=== PATIENT | female | born 1985 | race American Indian/Alaskan Native ===

== ENCOUNTER 2016-06-11 10:45 | Emergency (ER) | payer MEDICAID, OTHER ==
[2016-06-11 11:02] VITALS: BMI 26.6
[2016-06-11] MEDS ORDERED: Sodium Chloride 0.9% 1,000 ML IV ONE (11:02)
[2016-06-11 11:03] VITALS: RESP 20
[2016-06-11] MEDS ORDERED: Sodium Chloride 0.9% 1,000 ML ONE (11:14)
--- NOTE | 2016-06-11 11:18 | C.PDOC ---
History Of Present Illness 30 y/o female presents to the ED with complains of upper abdominal pain since this morning. History of in the past, no other medical problems. Pt denies nausea, vomiting, diarrhea, fever, or any other complaints. Time Seen by Provider: 06/11/16 10:55 Chief Complaint (Nursing): Abdominal Pain History Per: Patient History/Exam Limitations: no limitations Onset/Duration Of Symptoms: Hrs Current Symptoms Are (Timing): Still Present Severity: Mild Radiation Of Pain To:: None Quality Of Discomfort: "Pain" Associated Symptoms: denies: Fever, Nausea, Vomiting, Diarrhea, Chest Pain Exacerbating Factors: None Alleviating Factors: None Recent travel outside of the [place]: No Past Medical History Reviewed: Historical Data, Nursing Documentation, Vital Signs Vital Signs: Last Vital Signs Temp 97.6 F 06/11/16 10:56 Pulse 64 06/11/16 10:56 Resp 20 06/11/16 10:56 BP 112/80 06/11/16 10:56 Pulse Ox 100 06/11/16 13:41 Family History: States: Unknown Family Hx - Social History Hx Tobacco Use: No Hx Alcohol Use: No Hx Substance Use: No - Immunization History Hx Tetanus Toxoid Vaccination: No Hx Influenza Vaccination: No Hx Pneumococcal Vaccination: No Review Of Systems Except As Marked, All Systems Reviewed And Found Negative. Constitutional: Negative for: Fever Cardiovascular: Negative for: Chest Pain Gastrointestinal: Positive for: Abdominal Pain. Negative for: Nausea, Vomiting , Diarrhea Physical Exam - Physical Exam Appears: Non-toxic, No Acute Distress Skin: Warm, Dry, No Rash Head: Atraumatic, Normacephalic Neck: Normal ROM, Supple Chest: Symmetrical Cardiovascular: Rhythm Regular, No Murmur Respiratory: Normal Breath Sounds, No Rales, No Rhonchi, No Wheezing Gastrointestinal/Abdominal: Soft, Tenderness (epigastric), No Guarding, No Rebound Extremity: Bilateral: Atraumatic Neurological/Psych: Oriented x3 ED Course And Treatment - Laboratory Results Result Diagrams: 06/11/16 12:20 06/11/16 12:20 Lab Interpretation: Normal Urine POC: Negative ECG: Interpreted By Me ECG Rhythm: Sinus Rhythm ECG Interpretation: Normal Rate From EC O2 Sat by Pulse Oximetry: 100 (on room air) Pulse Ox Interpretation: Normal - Other Rad No standard instances Interpretation: FINDINGS: UTERUS: Measures 12.5 x 4.2 x 7.4 cm. Anteverted. ENDOMETRIUM: Measures 6 mm in diameter. IUD was not adequately visualized ; crna reports best possible images obtained during this examination. CERVIX: No cervical abnormality identified. RIGHT OVARY: Measures 3.5 x 1.9 x 3.3 cm. Blood flow is demonstrated. LEFT OVARY: Measures 9.3 x 8.4 x 8.3 cm. Blood flow is demonstrated. Adnexal cystic structure measuring approximately 8.5 x 7.2 x 9.0 cm, possibly septated cyst versus hydrosalpinx. FREE FLUID: No significant free fluid noted. OTHER FINDINGS: None. IMPRESSION: The IUD was not adequately visualized on this study and positioning cannot be assessed. Concern that the IUD may reside within the lower uterine segment/cervix which would require repositioning. Correlate clinically and recommend repeat study. Septated 9 cm left adnexal cyst vs hydrosalpinx. - CT Scan/US No standard instances Other Rad Studies (CT/US): Read By Radiologist CT/US Interpretation: FINDINGS: LIVER: Measures 17.6 cm in length. Echogenic liver may be seen in setting of hepatic parenchymal disease or fatty infiltration. No focal hepatic mass identified. Main portal vein appears patent with normal directional flow. No intrahepatic bile duct dilatation. GALLBLADDER : No gallstones. No gallbladder wall thickening or pericholecystic edema. Negative sonographic Samuels's sign as assessed by the crna. COMMON BILE DUCT: Measures approximately 3 mm. PANCREAS: Not well-visualized. RIGHT KIDNEY: Measures 11.6 x 5.8 x 5.8 cm. No obstructing calculus or hydronephrosis identified. AORTA: Limited visualization appears grossly unremarkable. IVC: Limited visualization appears grossly unremarkable. OTHER FINDINGS: None . IMPRESSION: Echogenic liver may be seen in setting of hepatic parenchymal disease or fatty infiltration. Progress Note: Plan: labs, pepcid, IV fluids, US abdomen. Case discused and patient evaluated by Dr Brown who agrees with discharge and follow up with OB/ INVESTOR RELATIONS ANALYST for further evaluation Reassessment Condition: Improved Disposition - Disposition Referrals: [facility] [Outside] [facility] at [facility] [Outside] Disposition: HOME/ ROUTINE Disposition Time: 13:45 Condition: STABLE Additional Instructions: Follow up with your INVESTOR RELATIONS ANALYST for further evaluation Prescriptions: Naproxen [Naprosyn] 1 tab PO BID PRN #25 tab PRN Reason: Pain Instructions: Ovarian Cyst (ED) - POA Present On Arrival: None - Clinical Impression Clinical Impression: Abdominal pain, Ovarian cyst - PA / OPHTHALMIC SURGICAL ASSISTANT / Resident Statement MD/DO has reviewed & agrees with the documentation as recorded. - Scribe Statement The provider has reviewed the documentation as recorded by the Scribe Joshua Morin All medical record entries made by the Scribe were at my direction and personally dictated by me. I have reviewed the chart and agree that the record accurately reflects my personal performance of the history, physical exam, medical decision making, and the department course for this patient. I have also personally directed, reviewed, and agree with the discharge instructions and disposition.
--- NOTE | 2016-06-11 11:53 | US ---
HISTORY: Pain RUQ COMPARISON: None available. TECHNIQUE: Sonographic evaluation of the right upper quadrant of the abdomen. FINDINGS: LIVER: Measures 17.6 cm in length. Echogenic liver may be seen in setting of hepatic parenchymal disease or fatty infiltration. No focal hepatic mass identified. Main portal vein appears patent with normal directional flow. No intrahepatic bile duct dilatation. GALLBLADDER: No gallstones. No gallbladder wall thickening or pericholecystic edema. Negative sonographic Samuels's sign as assessed by the market news reporter. COMMON BILE DUCT: Measures approximately 3 mm. PANCREAS: Not well-visualized. RIGHT KIDNEY: Measures 11.6 x 5.8 x 5.8 cm. No obstructing calculus or hydronephrosis identified. AORTA: Limited visualization appears grossly unremarkable. IVC: Limited visualization appears grossly unremarkable. OTHER FINDINGS: None . IMPRESSION: Echogenic liver may be seen in setting of hepatic parenchymal disease or fatty infiltration.
--- NOTE | 2016-06-11 12:23 | US ---
HISTORY: vaginal bleeding COMPARISON: None available. TECHNIQUE: Real-time transabdominal pelvic ultrasound was performed. In addition a transvaginal pelvic ultrasound was necessary to better depict pelvic anatomy FINDINGS: UTERUS: Measures 12.5 x 4.2 x 7.4 cm. Anteverted. ENDOMETRIUM: Measures 6 mm in diameter. IUD was not adequately visualized ; wood craftsman reports best possible images obtained during this examination. CERVIX: No cervical abnormality identified. RIGHT OVARY: Measures 3.5 x 1.9 x 3.3 cm. Blood flow is demonstrated. LEFT OVARY: Measures 9.3 x 8.4 x 8.3 cm. Blood flow is demonstrated. Adnexal cystic structure measuring approximately 8.5 x 7.2 x 9.0 cm, possibly septated cyst versus hydrosalpinx. FREE FLUID: No significant free fluid noted. OTHER FINDINGS: None. IMPRESSION: The IUD was not adequately visualized on this study and positioning cannot be assessed. Concern that the IUD may reside within the lower uterine segment/cervix which would require repositioning. Correlate clinically and recommend repeat study. Septated 9 cm left adnexal cyst vs hydrosalpinx.
[2016-06-11 12:31] LABS: BASO % 0.2 % (0.0-2.0); EOS % 0.5 % (0.0-4.0); HEMATOCRIT 37.1 % (34.0-47.0); LYMPH # 0.8 K/uL (1.0-4.3); LYMPH % 19.3 % (20.0-40.0); MEAN CELL VOLUME 91.1 fL (81.0-99.0); MEAN CORPUSCULAR HEMOGLOBIN 29.9 pg (27.0-31.0); MEAN CORPUSCULAR HGB CONC 32.8 g/dL (33.0-37.0); MEAN PLATELET VOLUME 8.3 fL (7.2-11.7); MONO # 0.4 K/uL (0.0-0.8); MONO % 10.3 % (0.0-10.0); RED CELL DISTRIBUTION WIDTH 13.5 % (11.5-14.5)
[2016-06-11 12:34] LABS: CHLORIDE 100 mmol/L (98-107); POTASSIUM 3.9 mmol/L (3.6-5.2); SODIUM 138 mmol/L (132-148)
[2016-06-11 12:36] LABS: GFR AFRICAN-AMERICAN > 60
[2016-06-11 12:37] LABS: ALB/GLOB RATIO 1.5 (1.0-2.1); ALKALINE PHOSPHATASE 46 U/L (38-126); ALT/SGPT 27 U/L (9-52); AST/SGOT 31 U/L (14-36); BILIRUBIN,TOTAL 0.2 mg/dL (0.2-1.3); BLOOD UREA NITROGEN 9 mg/dL (7-17); CALCIUM 8.5 mg/dl (8.6-10.4); CARBON DIOXIDE 26 mmol/L (22-30); GLUCOSE,RANDOM 100 mg/dL (65-105); TOTAL PROTEIN 6.7 g/dL (6.3-8.3)
[2016-06-11 14:05] VITALS: BP 112/74; PULSE 67; TEMP 98.2; O2SAT 99
--- NOTE | 2016-06-11 14:08 | CP.PCM.CON ---
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 Patient states that she first experienced the pain around 9:30 am whereupon she took some advil without much relief. She states that the pain was initially 10/10 waxing and waning in nature. Patient reports going to the work and not experiencing much relief, such that she left for further assessment. Upon arrival in the ED, patient was evaluated and administered Pepcid IV which brought the pain down to a 7/10. She denies nausea , vomiting vaginal bleeding, urinary frequency or urgency, diarrhea, constipation or palpitations at this time. PMHx- denies PSHx- c/s x3. Reason: failure to progress, and delivery 2 and 3 c/s delivery close in proxminity ( timewise) OBGYN Hx- Menarche: 12; Periods are regular, occurring every month Social: denies tobacco, alcohol or illicit drug use Patient has IUD in place [facility]- [facility] - Dr. Ezequiel Burnett In the ED, patient administered IV fluids, IV Pepcid. Transvaginal and abdominal Ultrasound were performed. Routine CBC, CMP labs drawn. Review of Systems - Constitutional Constitutional: absent: Chills, Daytime Sleepiness, Headache - EENT Eyes: absent: Blurred Vision Ears: absent: Decreased Hearing, Ear Discharge, Dizziness Nose/Mouth/Throat: absent: Nasal Congestion, Nasal Discharge - Cardiovascular Cardiovascular: Chest Pain. absent: Dyspnea - Respiratory Respiratory: absent: Cough, Dyspnea - Gastrointestinal Gastrointestinal: Abdominal Pain, Heartburn, Nausea. absent: Hematemesis, Loose Stools, Odynophagia, Vomiting - Genitourinary Genitourinary: absent: Urinary Frequency, Urinary Hesitance, Urinary Urgency - Reproductive: Female Reproductive:Female: Currently Menstual, Normal Menses. absent: Amenorrhea, Post Menopausal, Pelvic Pain - Menstruation Menstruation: Normal Menses - Musculoskeletal Musculoskeletal: absent: Back Pain, Neck Pain, Numbness - Integumentary Integumentary: absent: Change in Hair, Dry Skin - Neurological Neurological: absent: Abnormal Movements, Focal Weakness, Vertigo, Weakness - Psychiatric Psychiatric: absent: Abnormal Sleep Pattern, Anxiety - Endocrine Endocrine: absent: Change in Body Appearance, Change in Libido - Hematologic/Lymphatic Hematologic: absent: Easy Bleeding, Easy Bruising Past Patient History - Past Social History Smoking Status: Never Smoked Alcohol: None Drugs: Denies Home Situation {Lives}: With Family - MUSCULOSKELETAL/RHEUMATOLOGICAL Hx Falls: No - PSYCHIATRIC Hx Substance Use: No - SURGICAL HISTORY Hx Surgeries: Yes Hx Section: Yes Meds Home Medications: Home Medication List Medication Instructions Recorded Confirmed Type Naproxen [Naprosyn] 1 tab PO BID PRN #25 tab 06/11/16 Rx Allergies/Adverse Reactions: Allergies Allergy/AdvReac Type Severity Reaction Status Date / Time No Known Allergies Allergy Verified 03/30/15 13:15 Physical Exam - Constitutional Appears: Non-toxic, No Acute Distress - Head Exam Head Exam: ATRAUMATIC, NORMAL INSPECTION, NORMOCEPHALIC - Eye Exam Eye Exam: EOMI, Normal appearance, PERRL Pupil Exam: NORMAL ACCOMODATION - ENT Exam ENT Exam: Mucous Membranes Moist, Normal Exam - Neck Exam Neck exam: Positive for: Full Rom, Normal Inspection - Respiratory Exam Respiratory Exam: NORMAL BREATHING PATTERN - Cardiovascular Exam Cardiovascular Exam: +S1, +S2 - GI/Abdominal Exam GI & Abdominal Exam: Distended, Normal Bowel Sounds, Soft. absent: Firm, Guarding, Mass, Rebound, Rigid - Extremities Exam Extremities exam: Positive for: full ROM. Negative for: pedal edema - Back Exam Back exam: FULL ROM - Neurological Exam Neurological exam: Alert, CN II-XII Intact, Oriented x3 - Psychiatric Exam Psychiatric exam: Normal Affect, Normal Mood - Skin Skin Exam: Dry, Intact, Normal Color, Warm Results - Vital Signs Recent Vital Signs: Last Vital Signs Temp 97.6 F 06/11/16 10:56 Pulse 64 06/11/16 10:56 Resp 20 06/11/16 10:56 BP 112/80 06/11/16 10:56 Pulse Ox 100 06/11/16 13:43 - Labs Result Diagrams: 06/11/16 12:20 06/11/16 12:20 Labs: Laboratory Results - last 24 hr 06/11/16 12:20 WBC 4.0 L RBC 4.08 Hgb 12.2 Hct 37.1 MCV 91.1 MCH 29.9 MCHC 32.8 L RDW 13.5 Plt Count 208 MPV 8.3 Neut % (Auto) 69.7 Lymph % (Auto) 19.3 L [place] % (Auto) 10.3 H Eos % (Auto) 0.5 Baso % (Auto) 0.2 Neut # 2.8 Lymph # 0.8 L [place] # 0.4 Eos # 0.0 Baso # 0.0 Sodium 138 Potassium 3.9 Chloride 100 Carbon Dioxide 26 Anion Gap 15 BUN 9 Creatinine 0.6 L Est GFR ( Amer) > 60 Est GFR (Non-Af Amer) > 60 Random Glucose 100 Calcium 8.5 L Total Bilirubin 0.2 AST 31 ALT 27 Alkaline Phosphatase 46 Total Protein 6.7 Albumin 4.0 Globulin 2.7 Albumin/Globulin Ratio 1.5 Lipase 80 Assessment & Plan (1) Adnexal cyst Assessment and Plan: Hemodynamically stable in no apparent acute distress Transvaginal Left adnexal cystic structure 8.5 x 7.2 x 9.0 cm. Blood flow demonstrated. Questionable septated cyst vs hydrosalpinx IUD also not visualized on imaging Abdominal US- echogenic liver Refer to full report for either study Patient administered IV pepcid, IVF Recommendations to follow up with OBGYN Dr. Burnett regarding results to discuss further management options and appropriate planning. Questions and concerns addressed. A copy of results provided with patient. Dispo: Home with followup to OBGYN as stated above Status: Acute
--- NOTE | 2016-06-20 08:39 | CARD ---
APPROVED REPORT EKG Measurement Heart [id number] <Conclusion> Normal sinus rhythm Normal ECG
== END 2016-06-11 14:04 | disposition home or self-care (01) ==
LOC: C.ER 10:45
DX: N83.202 Unspecified ovarian cyst, left side (principal); R10.10 Upper abdominal pain, unspecified
CPT/HCPCS: 76705; 76830; 76856; 80053; 83690; 85025; 96361; 96374; 99284; J7040

== ENCOUNTER 2017-01-19 21:49 | Emergency (ER) | payer OTHER ==
[2017-01-19 21:49] VITALS: BMI 26.6
[2017-01-19 21:58] VITALS: RESP 16
[2017-01-19 22:52] LABS: BASO % 0.5 % (0.0-2.0); EOS % 0.7 % (0.0-4.0); HEMATOCRIT 41.4 % (34.0-47.0); LYMPH # 1.4 K/uL (1.0-4.3); LYMPH % 28.2 % (20.0-40.0); MEAN CELL VOLUME 91.3 fL (81.0-99.0); MEAN CORPUSCULAR HEMOGLOBIN 30.2 pg (27.0-31.0); MEAN CORPUSCULAR HGB CONC 33.1 g/dL (33.0-37.0); MEAN PLATELET VOLUME 8.2 fL (7.2-11.7); MONO # 0.4 K/uL (0.0-0.8); MONO % 8.1 % (0.0-10.0); RED CELL DISTRIBUTION WIDTH 13.4 % (11.5-14.5); WHITE BLOOD COUNT 4.9 K/uL (4.8-10.8)
[2017-01-19 22:57] LABS: URINE BACTERIA RARE (<OCC); URINE BILIRUBIN NEGATIVE (NEGATIVE); URINE BLOOD NEGATIVE (NEGATIVE); URINE COLOR Colorless (YELLOW); URINE GLUCOSE (UA) NORMAL (Normal); URINE KETONE NEGATIVE (NEGATIVE); URINE LEUKOCYTE ESTERASE NEG Leu/uL (Negative); URINE PROTEIN NEGATIVE (NEGATIVE); URINE UROBILINOGEN NORMAL mg/dL (0.2-1.0); WBC URINE < 1 /hpf (0-5)
[2017-01-19 23:04] LABS: ALB/GLOB RATIO 1.1 (1.0-2.1); ALKALINE PHOSPHATASE 50 U/L (38-126); ALT/SGPT 48 U/L (9-52); AST/SGOT 21 U/L (14-36); BILIRUBIN,TOTAL 0.4 mg/dL (0.2-1.3); BLOOD UREA NITROGEN 10 mg/dL (7-17); CARBON DIOXIDE 27 mmol/L (22-30); CHLORIDE 102 mmol/L (98-107); GFR AFRICAN-AMERICAN > 60; GLUCOSE,RANDOM 84 mg/dL (65-105); POTASSIUM 3.9 mmol/L (3.6-5.2); SODIUM 137 mmol/L (132-148); TOTAL PROTEIN 8.2 g/dL (6.3-8.3)
--- NOTE | 2017-01-19 23:39 | C.PDOC ---
History Of Present Illness 31 y/o female c/o lower abdominal pain for the past few days. Patient reports an urine infection and took Macrobid yesterday. Patient reports dysuria, but denies fever, chills, vaginal bleeding, or discharge. Patient denies . LMP Jan 05. Time Seen by Provider: 01/19/17 23:00 Chief Complaint (Nursing): Abdominal Pain History Per: Patient History/Exam Limitations: no limitations Onset/Duration Of Symptoms: Days Current Symptoms Are (Timing): Still Present Severity: Mild Associated Symptoms: Urinary Symptoms. denies: Fever, Chills Additional History Per: Patient Abnormal Vaginal Bleeding: No Last Menstral Period: Jan 05 Past Medical History Reviewed: Historical Data, Nursing Documentation, Vital Signs Vital Signs: Last Vital Signs Temp 97.7 F 01/19/17 21:55 Pulse 68 01/20/17 01:31 Resp 16 01/20/17 01:31 BP 110/71 01/20/17 01:31 Pulse Ox 99 01/20/17 01:31 - Medical History PMH: Denies: Depression - [facility] Procedures RESECTION OF LEFT FALLOPIAN TUBE, PERC ENDO APPROACH (06/24/16) RESECTION OF LEFT OVARY, PERCUTANEOUS ENDOSCOPIC APPROACH (06/24/16) Family History: States: Unknown Family Hx - Social History Hx Tobacco Use: No Hx Alcohol Use: No Hx Substance Use: No - Immunization History Hx Tetanus Toxoid Vaccination: No Hx Influenza Vaccination: No Hx Pneumococcal Vaccination: No Review Of Systems Except As Marked, All Systems Reviewed And Found Negative. Constitutional: Negative for: Fever, Chills Gastrointestinal: Positive for: Abdominal Pain. Negative for: Vomiting, Diarrhea Genitourinary: Positive for: Dysuria. Negative for: Vaginal Discharge, Vaginal Bleeding Skin: Negative for: Rash Physical Exam - Physical Exam Appears: Non-toxic, No Acute Distress Skin: Warm, Dry, No Rash Head: Atraumatic, Normacephalic Oral Mucosa: Moist Throat: Normal, No Erythema Chest: Symmetrical Cardiovascular: Rhythm Regular, No Murmur Respiratory: Normal Breath Sounds, No Rales, No Rhonchi, No Wheezing Gastrointestinal/Abdominal: Soft, Tenderness (Hypogastric tenderness), No Guarding, No Rebound Back: Normal Inspection, No CVA Tenderness Neurological/Psych: Oriented x3, Normal Speech, Normal Cognition ED Course And Treatment - Laboratory Results Result Diagrams: 01/19/17 22:49 01/19/17 22:49 O2 Sat by Pulse Oximetry: 100 (RA) Pulse Ox Interpretation: Normal Medical Decision Making Medical Decision Making: Plans: * Toradol * US pelvis * Urine culture Disposition Counseled Patient/Family Regarding: Diagnosis - Disposition Referrals: [facility] at [facility] [Outside] Disposition Time: 01:56 Condition: STABLE Prescriptions: Naproxen 375 mg PO TIDPC #20 tablet Instructions: Ovarian Cyst (ED), Abdominal Pain (ED) Forms: [employer] (Gabonese) - POA Present On Arrival: None - Clinical Impression Clinical Impression: Ovarian cyst, Abdominal pain - Scribe Statement The provider has reviewed the documentation as recorded by the Scribe Ezequiel fonseca All medical record entries made by the Scribe were at my direction and personally dictated by me. I have reviewed the chart and agree that the record accurately reflects my personal performance of the history, physical exam, medical decision making, and the department course for this patient. I have also personally directed, reviewed, and agree with the discharge instructions and disposition.
--- NOTE | 2017-01-20 01:54 | US ---
EXAM: US Pelvis CLINICAL HISTORY: 31 years old, female; Pain; Pelvic pain; Prior surgery; Surgery date: 6+ months; Surgery type: Lt ovarian cyst removed; Additional info: Severe hypogastric pain/ tenderness TECHNIQUE: Real-time transabdominal and transvaginal pelvic ultrasound (complete) with image documentation. Transvaginal imaging was used for better evaluation of the endometrium and adnexa. Empty bladder limited transabdominal imaging. COMPARISON: No relevant prior studies available. FINDINGS: Uterus/cervix: Measured at 9.2 x 4.3 x 5 cm. Heterogeneous myometrium. Normal endometrial stripe thickness, measured at 4 mm. Right ovary: Measured at 4.8 x 3 x 3 cm. 1.1 cm complex cystic focus in the right ovary. Blood flow noted. Left ovary: Not visualized. Free fluid: Small amount of free fluid in region of right ovary. IMPRESSION: Uterus demonstrates heterogeneous myometrium, may represent underlying leiomyomatous changes. 1.1 cm complex cystic focus in the right ovary. Small amount of free fluid in region of right ovary. Left ovary not visualized.
[2017-01-20 02:15] VITALS: BP 112/69; PULSE 73; TEMP 98; O2SAT 99
== END 2017-01-20 02:15 | disposition home or self-care (01) ==
LOC: C.ER 21:49
DX: N83.209 Unspecified ovarian cyst, unspecified side (principal); R10.30 Lower abdominal pain, unspecified
CPT/HCPCS: 76830; 80053; 81001; 84703; 85025; 87086; 96374; 99284; J1885

== ENCOUNTER 2017-12-23 10:07 | Emergency (ER) | payer OTHER ==
[2017-12-23 10:11] VITALS: BMI 26.6
[2017-12-23 10:18] VITALS: BP 134/86; PULSE 81; RESP 16; TEMP 98.4; O2SAT 98
--- NOTE | 2017-12-23 10:37 | C.PDOC ---
History Of Present Illness 32 year old female presents to the ED via EMS for evaluation of left shoulder pain s/p injury during work today. 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 She notes dull constant 6/10 pain to the left side of her neck increased with movement. Denies fever, chills, LOC, numbness, tingling, and any other associated symptoms. Time Seen by Provider: 12/23/17 10:22 Chief Complaint (Nursing): Back Pain History Per: Patient History/Exam Limitations: no limitations Onset/Duration Of Symptoms: Hrs Current Symptoms Are (Timing): Still Present Past Medical History Reviewed: Historical Data, Nursing Documentation, Vital Signs Vital Signs: Last Vital Signs Temp 98.4 F 12/23/17 10:12 Pulse 81 12/23/17 10:12 Resp 16 12/23/17 10:12 BP 134/86 12/23/17 10:12 Pulse Ox 98 12/23/17 10:12 - Medical History PMH: Denies: Depression - [facility] Procedures RESECTION OF LEFT FALLOPIAN TUBE, PERC ENDO APPROACH (06/24/16) RESECTION OF LEFT OVARY, PERCUTANEOUS ENDOSCOPIC APPROACH (06/24/16) Family History: States: Unknown Family Hx - Social History Hx Tobacco Use: No Hx Alcohol Use: No Hx Substance Use: No - Immunization History Hx Tetanus Toxoid Vaccination: No Hx Influenza Vaccination: No Hx Pneumococcal Vaccination: No Review Of Systems Except As Marked, All Systems Reviewed And Found Negative. Constitutional: Positive for: Other ((-) LOC. (+) head pain. ). Negative for: Fever, Chills Gastrointestinal: Negative for: Nausea, Vomiting Musculoskeletal: Positive for: Neck Pain Neurological: Negative for: Weakness, Numbness, Incoordination Physical Exam - Physical Exam Appears: Non-toxic, No Acute Distress Skin: Normal Color, Warm, Dry, Other (bruising.) Head: Normacephalic, No Tenderness, No Swelling Eye(s): bilateral: Normal Inspection Neck: Normal ROM, Supple Extremity: Normal ROM (to the left shoulder. ), No Tenderness, No Deformity, No Swelling Neurological/Psych: Oriented x3, Normal Speech, Normal Motor, Normal Sensation, Normal Reflexes ED Course And Treatment O2 Sat by Pulse Oximetry: 98 (RA) Pulse Ox Interpretation: Normal Medical Decision Making Medical Decision Making: Plan: --Tylenol --Motrin Progress/Update: Patient stable for discharge home. Prescribed Motrin. Disposition Counseled Patient/Family Regarding: Diagnosis, Need For Followup, Rx Given - Disposition Disposition: HOME/ ROUTINE Disposition Time: 10:55 Condition: STABLE Prescriptions: Ibuprofen [Motrin] 600 mg PO TID #15 tab Instructions: Contusion (DC) Forms: General Discharge Instructions, [employer] (Nigerien), Work Excuse - POA Present On Arrival: None - Clinical Impression Clinical Impression: Contusion of back - Scribe Statement The provider has reviewed the documentation as recorded by the Scribe (Linda Fox) Provider Attestation: All medical record entries made by the Scribe were at my direction and personally dictated by me. I have reviewed the chart and agree that the record accurately reflects my personal performance of the history, physical exam, medical decision making, and the department course for this patient. I have also personally directed, reviewed, and agree with the discharge instructions and disposition.
== END 2017-12-23 11:00 | disposition home or self-care (01) ==
LOC: C.ER 10:07
DX: S20.229A Contusion of unspecified back wall of thorax, initial encounter (principal); W20.8XXA Other cause of strike by thrown, projected or falling object, initial encounter; Y92.219 Unspecified school as the place of occurrence of the external cause; Y99.0 Civilian activity done for income or pay

== ENCOUNTER 2018-06-01 03:49 | Emergency (ER) | payer OTHER ==
[2018-06-01 03:49] VITALS: BMI 25.8
[2018-06-01 03:56] VITALS: TEMP 97.7; O2SAT 97
--- NOTE | 2018-06-01 04:11 | C.PDOC ---
History Of Present Illness 32 year old male presents to the ED c/o right lower sternal chest pain. 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 Patient reports pain is digitally reproducible. Patient denies fever, chills, headache, visual changes, SOB, palpitations, rash, weakness, numbness. Time Seen by Provider: 06/01/18 04:04 Chief Complaint (Nursing): Chest Pain History Per: Patient History/Exam Limitations: no limitations Onset/Duration Of Symptoms: Days Current Symptoms Are (Timing): Still Present Exacerbating Factors: Movement Recent travel outside of the [place]: No Additional History Per: Patient Past Medical History Reviewed: Historical Data, Nursing Documentation, Vital Signs Vital Signs: Last Vital Signs Temp 97.7 F 06/01/18 03:54 Pulse 85 06/01/18 03:54 Resp 16 06/01/18 03:54 BP 112/78 06/01/18 03:54 Pulse Ox 97 06/01/18 03:54 - Medical History PMH: No Chronic Diseases Denies: Depression Surgical History: No Surg Hx - [facility] Procedures RESECTION OF LEFT FALLOPIAN TUBE, PERC ENDO APPROACH (06/24/16) RESECTION OF LEFT OVARY, PERCUTANEOUS ENDOSCOPIC APPROACH (06/24/16) Family History: States: Unknown Family Hx - Social History Hx Tobacco Use: No Hx Alcohol Use: No Hx Substance Use: No - Immunization History Hx Tetanus Toxoid Vaccination: No Hx Influenza Vaccination: No Hx Pneumococcal Vaccination: No Review Of Systems Constitutional: Negative for: Fever, Chills Eyes: Negative for: Vision Change Cardiovascular: Positive for: Chest Pain. Negative for: Palpitations Respiratory: Negative for: Cough, Shortness of Breath Gastrointestinal: Negative for: Nausea, Vomiting, Abdominal Pain Skin: Negative for: Rash Neurological: Negative for: Weakness, Numbness, Headache, Dizziness Physical Exam - Physical Exam Appears: Non-toxic, No Acute Distress, Other (black female) Skin: Normal Color, Warm, Dry, No Rash Head: Atraumatic, Normacephalic Eye(s): bilateral: Normal Inspection Neck: Normal ROM, Supple Chest: Symmetrical, Tenderness (digitally reproducible right lower sternal border, chaperonned by PATRICK Guzmán) Cardiovascular: Rhythm Regular Respiratory: Normal Breath Sounds, No Rales, No Rhonchi, No Wheezing Gastrointestinal/Abdominal: Soft, No Tenderness Extremity: Normal ROM, No Tenderness, No Swelling Neurological/Psych: Oriented x3, Normal Speech, Normal Cognition Gait: Steady ED Course And Treatment ECG: Interpreted By Me ECG Rhythm: Sinus Rhythm ECG Interpretation: Normal Rate From EC (BPM) O2 Sat by Pulse Oximetry: 97 (ON RA) Pulse Ox Interpretation: Normal Medical Decision Making Medical Decision Making: Plan: * Motrin 600 mg PO digitally and positionally reproducable anterior chest wall discomfort @ R lower parasternal boarder, [employer] lifting heavy pts, normal ekg c/w costochondritis Disposition Doctor Will See Patient In The: Office Counseled Patient/Family Regarding: Studies Performed, Diagnosis - Disposition Referrals: [facility] [Outside] [facility] [place] [Outside] Estephania Kumar MD [Non-Staff] - Disposition: HOME/ ROUTINE Disposition Time: 04:11 Condition: GOOD Additional Instructions: motrin/advil 400-600 mg every 6 hours as needed ice packs 1/2 hour per hour as needed no heavy lifting for 1 week normal EKG Instructions: Costochondritis Forms: [facility] ([place]) - Clinical Impression Clinical Impression: Chest wall discomfort - Scribe Statement The provider has reviewed the documentation as recorded by the Scribe Keagan Conn All medical record entries made by the Scribe were at my direction and personally dictated by me. I have reviewed the chart and agree that the record accurately reflects my personal performance of the history, physical exam, medical decision making, and the department course for this patient. I have also personally directed, reviewed, and agree with the discharge instructions and disposition.
[2018-06-01 04:44] VITALS: BP 124/78; PULSE 80; RESP 20
--- NOTE | 2018-06-02 20:48 | CARD ---
APPROVED REPORT Date of service: 06/01/2018 EKG Measurement Heart [id number] <Conclusion> Normal sinus rhythm Normal ECG
== END 2018-06-01 04:39 | disposition home or self-care (01) ==
LOC: C.ER 03:49
DX: R07.89 Other chest pain (principal)

== ENCOUNTER 2018-06-17 10:23 | Day surgery (SDC) | payer OTHER ==
[2018-05-22 15:27] VITALS: BMI 25.8
[2018-06-17] MEDS ORDERED: ceFAZolin 1 gm in NS 1 GM/100 ML BAG IVPB ONE (14:47)
[2018-06-17] MEDS ORDERED: Propofol 10 mg/ml Inj (20 ML) ONE (14:48)
[2018-06-17] MEDS ORDERED: Midazolam 2 MG/2 ML VIAL ONE (14:48)
--- NOTE | 2018-06-17 15:31 | PCM.SURG1 ---
Surgeon's Initial Post Op Note - Surgeon's Notes Surgeon: Dr. Serrato Manipulator Operator: PGY2 Type of Anesthesia: General LMA Pre-Operative Diagnosis: Right Breast Intraductal Papilloma Operative Findings: Needle intact. For Details see op note Post-Operative Diagnosis: Right Breast Intraductal Papilloma Operation Performed: Right Breast subareolar excision of papilloma with needle localization Specimen/Specimens Removed: 1. Right Breast Papilloma Estimated Blood Loss: EBL {In ML}: 5 Drains Used: No Drains Post-Op Condition: Good Date of Surgery/Procedure: 06/17/18 (Dictation #: [id number]) Time of Surgery/Procedure: 15:31
[2018-06-17] MEDS ORDERED: Oxycodone/Acetaminophen 5/325 mg Tab PO ONE (15:33)
[2018-06-17] MEDS ORDERED: HYDROmorphone 0.5 mg/0.5 ml ISec IVP PRN (15:38)
--- NOTE | 2018-06-17 15:55 | US ---
Date of service: 06/17/2018 HISTORY: This is a 32-year-old female sclerosing intraductal papilloma a dilated retroareolar duct right lower inner quadrant. TECHNIQUE/FINDINGS: Prior outside ultrasound-guided core needle biopsy right breast performed 03/05/2018 was reviewed preliminarily. Following full discussion of risks and benefits of the procedure with the patient including alternatives, patient freely gave written consent. Time-out was called identifying the patient and site of right breast lesion. Preliminary ultrasonography identified the lesion in question including the post biopsy clip. Area of the procedure was marked. Maximum sterile barrier protection was provided to the skin overlying the lesion.5 cc of 1 percent lidocaine was injected for local and deep soft tissue anesthesia. Subsequently, under ultrasound control right Kopan's needle wire assembly was advanced to the clip within the lesion in question at a dilated duct at the left lower inner quadrant. A needle wire assembly was advanced into a deeper portion of the same lesion bracketing the dilated duct in question. [place] removed deploying the wire successfully which were subsequently confirmed on confirmation mammography in craniocaudal and medial lateral projections. Prior to mammography, wire was stabilized with sterile bandage and plastic external clip. Postprocedure mammography confirms location of the initial wire adjacent to the clip and a 2nd wire deep to it. Patient tolerated the procedure well with no complications. Postoperative specimen radiograph demonstrates the post biopsy clip within the center of the specimen with good margins in the periphery. The stiffener of both wires are identified within the margins of the lumpectomy specimen as well. OTHER FINDINGS: None. IMPRESSION: Postseptal ultrasound-guided wire localization retroareolar duct as per above with good margins identified in lumpectomy specimen.
[2018-06-17 17:48] VITALS: RESP 18
[2018-06-17 17:49] VITALS: BP 103/60; PULSE 74; TEMP 97.8; O2SAT 99
--- NOTE | 2018-06-18 03:24 | OP ---
PROCEDURE DATE: 06/17/2018 SURGEON: Lucía Serrato MD VP CLINICAL: Yuval Grossman DO, PGY-2 TYPE OF ANESTHESIA: General LMA. ANESTHESIA ADMINISTERED BY: Cory Blackwell DO PREOPERATIVE DIAGNOSIS: Right breast intraductal papilloma. POSTOPERATIVE DIAGNOSIS: Right breast intraductal papilloma. PROCEDURE: Right breast excision of papilloma with needle localization. ESTIMATED BLOOD LOSS: 10 mL SPECIMEN: Right breast intraductal papilloma. INDICATIONS FOR SURGERY: This is a 32-year-old female who initially noticed bloody nipple discharge about six years ago. After further workup and biopsy, the patient was confirmed to have intraductal papilloma. Decision was made to go to the operating room for excision of intraductal papilloma. Risks and benefits were explained to the patient. The patient agreed. All consents were signed. DESCRIPTION OF PROCEDURE: The patient was brought into the operating room and placed in supine position. General anesthesia and LMA was induced. EKG leads . Confirmation was placed with end-tidal CO2. The right breast was prepped and draped in the usual sterile fashion. Of note, prior to the procedure, the patient went to Interventional Radiology and two needle wires were placed. Time-out was taken at this time confirming the patient's name, procedure and laterality. A subareolar incision of the right breast was made approximately 6 cm. A combination of sharp and dull dissection was made subareolar and deep following the needle wires x2. Hemostasis was achieved using electrocautery. At this time, an Allis clamp was used to hold on to the mass and was elevated out of the skin. Continued dissection was used using a combination of Metzenbaum sharp and electrocautery. At this time, the mass was successfully elevated and removed from the patient and was pass off the table for pathology specimen. At this time, pressure was applied and appropriate hemostasis was achieved. Callback from pathology confirming that all pieces were intact and the specimen was appropriate. Attention was taken back to the space. The incision was explored and proper hemostasis was achieved. A 4-0 Monocryl was used as this time in a running subcuticular fashion. Steri-Strips were then placed. No immediate complications were noted. The patient was awoken up and extubated and taken to the postanesthesia care unit in a stable condition. All counts were correct at the end of the case. Dr. Serrato was present and participated in all aspects of the case. Yuval Grossman DO Lucía Serrato MD
== END 2018-06-17 17:45 | disposition home or self-care (01) ==
LOC: C.SDS 10:23
PROVIDERS: ATTEND Specialist
DX: D24.1 Benign neoplasm of right breast (principal)
CPT/HCPCS: 19125; 19285; 88307; J0690; J1170; J1885; J2250; J2405; J2704; J3010